=== PATIENT | male | born 1965 | race Caucasian/White ===

== ENCOUNTER 2016-07-30 12:52 | Inpatient (IN) ==
[2016-07-30 13:15] LABS: MANUAL DIFF NEEDED? NO
[2016-07-30 13:20] LABS: BASO% 0.5 % (0.0-0.8); EOS% 2.7 % (0.0-10.0); HEMATOCRIT 40.9 % (42.0-52.0); IMM GRAN# 0.04 X1000 (0.0-0.04); IMM GRAN% 0.4 % (0.0-0.5); LYMPH# 2.14 X1000 (1.2-3.4); LYMPH% 19.5 % (20.5-51.1); MCH 30.4 PG (27-31); MCHC 34.2 g/dL (33-37); MCV 88.9 FL (81-99); MONO# 0.67 X1000 (0.11-0.59); MONO% 6.1 % (1.7-9.3); MPV 10.1 FL (7.4-10.4); NEUT% 70.8 % (42.2-75.2); PLT 321 X1000 (130-400)
[2016-07-30 13:21] LABS: URINE CULTURE NEEDED? NO; URINE MICRO REVIEW NEEDED? NO; URINE SOURCE CLEAN CATCH
[2016-07-30 13:28] LABS: BILIRUBIN URINE NEGATIVE (NEGATIVE); BLOOD URINE SMALL (NEGATIVE); COLOR YELLOW; GLUCOSE URINE NEGATIVE (NEGATIVE); LEUKOCYTES URINE NEGATIVE (NEGATIVE); NITRITE URINE NEGATIVE (NEGATIVE); PROTEIN URINE TRACE mg/dL (NEGATIVE); SP GRAVITY URINE 1.022; TURBIDITY URINE CLEAR (CLEAR); UROBILINOGEN URINE NORMAL (NORMAL)
[2016-07-30 13:29] LABS: UR EPITHELIAL CELLS <10 /HPF (<10); URINE BACTERIA NEGATIVE /HPF; URINE RBC <10 /HPF (<10); URINE WBC <10 /HPF (<10)
[2016-07-30 13:34] LABS: AGAP 13; ALBUMIN 4.2 g/dL (3.5-5.0); ALKALINE PHOSPHATASE 68 U/L (32-122); BUN 15 mg/dL (8-22); CALCIUM 9.4 mg/dL (8.8-10.2); CHLORIDE 103 mmol/L (98-107); COSMO 286; GOT 11 U/L (10-34); GPT 13 U/L (10-44); POTASSIUM 4.6 mmol/L (3.5-5.1); SODIUM 142 mmol/L (136-145); TCO2 26 mmol/L (25-35); TOTAL BILIRUBIN 0.28 mg/dL (0.20-1.00); TOTAL PROTEIN 7.1 g/dL (6.3-8.3)
[2016-07-30 13:52] LABS: INR 1.31; PTT 39.5 Seconds (22.0-36.0)
--- NOTE | 2016-07-30 14:49 | PROVIDER DOCUMENTATION ---
HPI-Abdominal Pain/GI Problem - General Chief Complaint: Male Stated Complaint: SENT BY MD FOR FURTHER EVAL Time Seen by Provider: 07/30/16 13:20 Allergies/Adverse Reactions: Patient Allergies Allergy/AdvReac Type Severity Reaction Status Date / Time atorvastatin calcium * Allergy Severe ANAPHYLAXIS Verified 07/30/16 14:49 [From Lipitor] Home Medications: Home Medication List Medication Instructions Recorded Confirmed Last Taken Type Metformin [Glucophage] 1,000 mg PO BID 07/09/15 07/30/16 07/30/16 08:00 History Aspirin 81 mg DAILY 07/17/15 07/30/16 07/30/16 08:00 History ENALApril [Vasotec] 5 mg PO DAILY 08/16/15 07/30/16 07/30/16 08:00 History PRAVAstatin [Pravachol] 40 mg PO QHS 08/16/15 07/30/16 07/30/16 08:00 History Rivaroxaban [Xarelto] 40 mg PO HS 07/23/16 07/30/16 07/30/16 08:00 History Carvedilol [Coreg] 6.25 mg PO BID 07/29/16 07/30/16 07/30/16 08:00 History Fluoxetine HCl 20 mg PO DAILY 07/29/16 07/30/16 07/30/16 08:00 History - History of Present Illness-ABD Nature of Presenting Problems: Pt presents to ER for surgery for "filter" for his blood clot. Was seen in ER yesterday and 8 days ago for same complaints of weakness and "not feeling well" after starting blood thinner for DVT. Was seen in PCP office today and stopped blood thinner and pt understood was to come to ER for surgical placement of filter for DVT. States he has blood in his urine x6 days intermittently. Abdominal Pain Onset Location: reports: generalized abdomen Pain Radiation: reports: no radiation Quality of Pain: reports: aching Severity in ED: reports: mild Onset/Duration: reports: 1 week ago Timing: reports: intermittent Activities at Onset: reports: none Modifying Factors: improves with: nothing Associated Symptoms: reports: dizziness, fatigue, loss of appetite, malaise, nausea, weakness. denies: chest pain, constipation, diarrhea, headaches, joint pain, vomiting, trouble walking Last BM: this morning Dark Stools Present?: reports: none noticed Rectal Bleeding: reports: none # of Diarrhea Episodes: 0 Rectal Pain: reports: none # of Vomiting Episodes: 0 Bruising or Bleeding Gums?: No Similar Symptoms Previously?: Yes Recently seen or treated by another doctor?: Yes (seen in ER multiple times for same complaint) Review of Systems - Adult - REVIEW OF SYSTEMS - ADULT Constitutional: reports: jaydasally. denies: chills, fever Eyes: denies: blurred vision, double vision Cardiovascular: denies: chest pain Respiratory: denies: dyspnea on exertion, shortness of breath Gastrointestinal: reports: abdominal pain, nausea. denies: diarrhea, vomiting Genitourinary: reports: hematuria Musculoskeletal: reports: muscle weakness Neurological: denies: dizziness/vertigo, headache/migraines, numbness, paresthesia All Other Systems: Reviewed and Negative Past History - Adult - PAST MEDICAL HISTORY-ADULT Review of Records: reports: Old Records Reviewed, Nursing Assessment Review, Medications Reviewed, Social history reviewed & non-contributory. Cardiovascular: reports: CAD, PA Respiratory: reports: denies history Gastrointestinal: reports: denies history Endocrine/Immune: reports: Diabetes Other Conditions: reports: other (DVT) - PRIOR SURGERIES/PROCEDURES Surgical/Procedure History: reports: cardiac stent, orthopedic (extremity) (knee ) - PRIOR HOSPITALIZATIONS Prior Hospitalizations: reports: none - IMMUNIZATION STATUS Childhood Immunizations: See Nurse Assessment Flu Vaccine: See Nurse Assessment - FAMILY HISTORY Family History: diabetes, CAD over 55 yo, HTN - SOCIAL HISTORY Smoking: greater than 1 pack/day Provider spent 3-5 mins advising pt. on dangers of tobacco.: Discussed manners to quit use, and f/u contacts for add'l counseling. Living Situation: family Physical Exam-General - PHYSICAL EXAM-ADULT Initial Vital Signs Reviewed: Yes - CONSTITUTIONAL General Appearance: appears well, alert, no apparent distress - EYES Eyes: PERRL/EOMI, pink conjunctivae - HEAD, EARS, NOSE, MOUTH & THROAT HENMT: normocephalic/atraumatic, moist mucous membranes - RESPIRATORY Respiratory: chest non-tender, lungs clear, normal breath sounds - CARDIOVASCULAR Cardiovascular: regular rate, rhythm, no edema - GASTROINTESTINAL (ABDOMEN) Abdominal Exam: normal bowel sounds, soft, tenderness (generalized). negative: distended, guarding, rigid, rebound, hernia, mass - MUSCULOSKELETAL Back Exam: normal inspection, no CVA tenderness, no vertebral tenderness Extremity: normal gait, normal inspection - SKIN Integumentary: normal color, normal turgor, warm/dry - NEUROLOGIC Neurologic: grossly normal, no motor/sensory deficits - PSYCHIATRIC Psych/Mental Status: normal thought content, normal thought process, other (pt and family very confrontational and argumentative) Progress - PLAN OF CARE/RESULTS Progress/Plan/Lab Results: Vital Signs - 8 hr 07/30/16 12:54 Temperature 97.7 F Pulse Rate 72 Respiratory Rate 18 Blood Pressure 113/71 O2 Sat by Pulse Oximetry 99 Laboratory Results - last 24 hr 07/30/16 07/30/16 07/30/16 13:05 13:05 13:05 WBC 10.95 H RBC 4.60 L Hgb 14.0 Hct 40.9 L MCV 88.9 MCH 30.4 MCHC 34.2 RDW Std Deviation 13.9 Plt Count 321 MPV 10.1 Immature Gran % (Auto) 0.4 Neut % (Auto) 70.8 Lymph % (Auto) 19.5 L Jerome % (Auto) 6.1 Eos % (Auto) 2.7 Baso % (Auto) 0.5 Immature Gran # (Auto) 0.04 Neut # (Auto) 7.74 H Lymph # (Auto) 2.14 Jerome # (Auto) 0.67 H Eos # (Auto) 0.30 Baso # (Auto) 0.06 PT 14.0 H INR 1.31 PTT (Actin FS) 39.5 H Sodium 142 Potassium 4.6 Chloride 103 Carbon Dioxide 26 Anion Gap 13 BUN 15 Creatinine 0.9 Estimated GFR/1.73 m2 > 60 BUN/Creatinine Ratio 17 Glucose 135 H Calculated Osmolality 286 Calcium 9.4 Total Bilirubin 0.28 AST 11 ALT 13 Alkaline Phosphatase 68 Total Protein 7.1 Albumin 4.2 Globulin 2.9 Albumin/Globulin Ratio 1.4 Urine Source Urine Color Urine Turbidity Urine pH Ur Specific [place] Urine Protein Ur Glucose (Stick) Ur Ketones (Stick) Urine Blood Urine Nitrite Urine Bilirubin Urobilinogen Dipstick Urine Leukocytes Urine WBC (Auto) Urine RBC (Auto) U Epithel Cells (Auto) Urine Bacteria (Auto) 07/30/16 13:05 WBC RBC Hgb Hct MCV MCH MCHC RDW Std Deviation Plt Count MPV Immature Gran % (Auto) Neut % (Auto) Lymph % (Auto) Jerome % (Auto) Eos % (Auto) Baso % (Auto) Immature Gran # (Auto) Neut # (Auto) Lymph # (Auto) Jerome # (Auto) Eos # (Auto) Baso # (Auto) PT INR PTT (Actin FS) Sodium Potassium Chloride Carbon Dioxide Anion Gap BUN Creatinine Estimated GFR/1.73 m2 BUN/Creatinine Ratio Glucose Calculated Osmolality Calcium Total Bilirubin AST ALT Alkaline Phosphatase Total Protein Albumin Globulin Albumin/Globulin Ratio Urine Source CLEAN CATCH Urine Color YELLOW Urine Turbidity CLEAR Urine pH 5.0 Ur Specific [place] 1.022 Urine Protein TRACE A Ur Glucose (Stick) NEGATIVE Ur Ketones (Stick) NEGATIVE Urine Blood SMALL A Urine Nitrite NEGATIVE Urine Bilirubin NEGATIVE Urobilinogen Dipstick NORMAL Urine Leukocytes NEGATIVE Urine WBC (Auto) <10 Urine RBC (Auto) <10 U Epithel Cells (Auto) <10 Urine Bacteria (Auto) NEGATIVE Orders Category Date Time Status CBC WITH ELECTRONIC DIFF [HEME] Stat Lab 07/30/16 13:05 Completed COMPREHENSIVE METABOLIC PANEL [CHEM] Stat Lab 07/30/16 13:05 Completed PROTIME WITH INR [COAG] Stat Lab 07/30/16 13:05 Completed PTT [COAG] Stat Lab 07/30/16 13:05 Completed UA NIMS W/REFLEX CULT [URINALYSIS] Stat Lab 07/30/16 13:05 Completed Family members are very confrontational about improved labs from prior visits because "something is wrong with him" and "both of your hospitals have done nothing for him" for his weakness. Explained that I spoke to Dr. Estrella and he did not refer pt to ER for surgery but for management of abdominal pain if it warrants trip to ER. Explained that a CT of the abdomen had been ordered to evaluate abdominal pain. states "I'll call his office and get to the bottom of this" Result Diagrams: 07/30/16 13:05 07/30/16 13:05 - REASSESSMENT Reassessment #1 Time Reassessed: 17:36 (discussed with Catherine and will be admitted and evaulated for oral or surgical intervention) - CT/MRI 1 CT Study: Abdomen, Pelvis Impression: Normal CT Results: no acute abnormality - CONSULTS/PCP/HOSPITALIST Notification #1 *Consult/PCP/Hospitalist*: Rod Estrella Time Discussed: 14:57 (saw pt in clinic today, was hypotensive and had abdominal pain. Educated pt that filter for DVT could be option. Pt was not told to come to ER for surgery. Discussed progressive improvement in labs and urine from prior visits. ) Consult Disposition: F/U in office #2 Consult: Mickey Time Discussed: 17:14 (recommends further work up to evaluate need for filter as pt is not anemic and has no hematuria at this time so pt could potentially be on oral anticoagulant) #3 Consult: [place] Time Discussed: 17:35 Consult Disposition: Admit Departure - Departure Time of Disposition Decision: 16:53 DIAGNOSIS: Weakness generalized Disposition: ADMITTED INPATIENT 09 Certified Medical Emergency: Emergent Condition: Good Additional Freetext Instructions: ED Follow Up Instructions: You have been treated by a care provider in the Emergency Department. These instructions are being provided to you so you can have an understanding of how to care for yourself upon discharge. Upon discharge from the Emergency Department, you are responsible for making arrangements for follow-up care by a physician of your choice. Take all prescribed medications as directed. Return to the Emergency Department immediately for any new or worsening symptoms. You may call the Physician Referral phone number at [phone] to obtain a list of Physicians who are taking new patients. Referrals and Follow-Ups: Rod Estrella MD [Primary Care Provider] - Wilmar Arevalo MD [STAFF PHYSICIAN] - Discharge Education: Weakness Attestation - Physician/ KIAH Attestation Patient care was provided by Advanced Practice Provider:: Yes Advanced Practice Provider:: Venus Franklin Advanced Practice Provider documentation review:: The Mid-level provider documentation, treatment plan and medical decision making was reviewed by the physician who agrees with all treatment and medical decision making by the MLP.
--- NOTE | 2016-07-30 17:52 | Diag Imaging Result Document ---
PROCEDURE NAME: CT ABD/PELVIS W/ IV CONT ONLY - 07/30/2016 CT ABDOMEN AND PELVIS WITH INTRAVENOUS CONTRAST: FINDINGS: Dose reduction protocol. Compared to 07/19/2015. There are no pleural effusions on the current exam and there is no basilar atelectasis. Likely mild fatty infiltration of the liver. No focal hepatic abnormality. Normal spleen, pancreas, gallbladder, and adrenal glands. There is a tiny nonobstructing left renal stone. There are also tiny renal cysts. No hydronephrosis. No aortic aneurysm. Mild to moderate atherosclerosis. No bowel obstruction. No free air. Normal appendix. No abscess. The urinary bladder is moderately distended and appears normal. The prostate is not enlarged. IMPRESSION: No acute abdominal or pelvic abnormality. A preliminary report was given at 3:50 PM.
[2016-07-30] MEDS ORDERED: NORCO-5 PO PRN (18:54)
[2016-07-30] MEDS ORDERED: ZOFRAN IV PRN (18:56)
[2016-07-30] MEDS ORDERED: XOPENEX NEB INH PRN (18:58)
[2016-07-30] MEDS ORDERED: NS NEB INH SCH (19:00)
[2016-07-30] MEDS ORDERED: NICODERM PATCH TD SCH (20:00)
[2016-07-30] MEDS: LOVENOX SUBQ SCH (20:10)
[2016-07-30] MEDS: NICODERM PATCH TD SCH (20:45)
[2016-07-30] MEDS: COREG PO SCH (21:00)
[2016-07-30] MEDS: HUMULIN R SUBQ SCH (21:02)
[2016-07-30] MEDS: PRAVACHOL PO SCH (21:04)
--- NOTE | 2016-07-30 21:57 | HISTORY AND PHYSICAL ---
PRIMARY CARE PHYSICIAN: Rod Estrella M.D. [place] [facility] CONSULTANT: Silviano Demarco M.D. CHIEF COMPLAINT: Pain in my left leg and abdominal pain. HISTORY OF PRESENT ILLNESS: Mr. Bahena is a 51-year-old male with a history of coronary artery disease status post stent, diabetes mellitus type 2 and a recently diagnosed left lower extremity DVT who presented to the ER today with a chief complaint of increasing pain in his left lower extremity. The patient was diagnosed with a left lower extremity deep vein thrombosis on 07/13/2016. At that time the patient was started on Xarelto. Eliquis was mentioned as a possibility, however, it was noted to be too expensive for the patient. The patient states that after 1 week of taking Xarelto he started to have intermittent episodes of hematuria. He also reported feeling weaker than normal and complained of overall general malaise. The patient presented to his primary care physician's office today with a complaint of abdominal pain. He was then sent to the ER for further treatment and evaluation. The patient denies having any shortness of breath, headache, dizziness or recent syncopal episode. The patient denies having any change in his bowel habits. The patient states that he does not want to take the Xarelto anymore and is requesting to have an IVC filter placed. In the ER, a CT of the abdomen and pelvis was done that revealed no acute abnormality. PAST MEDICAL HISTORY: 1. Coronary artery disease status post stent. 2. History of V-fib arrest. 3. History of MA. 4. Diabetes mellitus type 2. 5. Hypertension. 6. Morbid obesity. 7. Recently diagnosed left lower extremity deep vein thrombosis. 8. Tobacco dependence. 9. Situational depression. PAST SURGICAL HISTORY: 1. Cardiac stents. 2. I and D of right leg compartment hematoma. FAMILY HISTORY: Unknown. The patient is adopted. SOCIAL HISTORY: The patient is and lives at home with his . The patient states that he smokes half a pack of cigarettes a day. He denies any alcohol or illicit drug use. ALLERGIES: Lipitor. HOME MEDICATIONS: 1. Fluoxetine 20 mg oral daily. 2. Xarelto 40 mg p.o. at bedtime. 3. Pravachol 40 mg p.o. at bedtime. 4. Metformin 1000 mg p.o. twice a day. 5. Aspirin 81 mg p.o. daily. 6. Vasotec 5 mg p.o. daily. 7. Coreg 6.25 mg p.o. twice daily. REVIEW OF SYSTEMS: A 12 point review of systems has been completed. Please refer to the history of present illness for pertinent positives and negatives. PHYSICAL EXAMINATION: VITAL SIGNS: Temperature 98 degrees, blood pressure 103/62, heart rate 70, respirations 18, O2 saturations 98% on room air GENERAL: This is a morbidly obese male, lying on the stretcher, in no acute distress. HEAD: Normocephalic, atraumatic. HEART: S1, S2 normal. Regular rate and rhythm. LUNGS: Clear to auscultation bilaterally. No wheezes, no rales, no rhonchi. ABDOMEN: Positive bowel sounds. Soft, nontender, nondistended. EXTREMITIES: +1 edema involving the left lower extremity. No cyanosis. Positive for calf tenderness in the left lower extremity. NEUROLOGIC: The patient is alert and oriented x3. No focal neurologic deficits noted. LABS: White blood cell count 10.9, hemoglobin 14, hematocrit 40, platelets 321,000 INR 1.3. UA negative. Sodium 142, potassium 4.6, chloride 103, CO2 26, BUN 15, creatinine 0.9, glucose 135. Calcium 9.5, total bilirubin 0.2, AST 11, ALT 13, alkaline phosphatase 68, total protein 7.1, albumin 4.2. RADIOLOGIC: CT of the abdomen and pelvis: No acute abnormality. ASSESSMENT AND PLAN: 1. Extensive left lower extremity deep vein thrombosis. We will start the patient on full dose Lovenox. We will consult Hematology and General Surgery for further recommendations. 2. Diabetes mellitus type 2. We will hold the patient's metformin since he just received IV contrast today. We will cover the patient with sliding scale insulin. 3. Coronary artery disease status post stent. Aware. We will restart the patient's current cardiac medications. 4. Morbid obesity. Aware. 5. Tobacco dependence. We will start the patient on a NicoDerm patch. The patient will also receive smoking cessation counseling. 6. Situational depression. Continue on Prozac. cc: Vijaya Escalante MD
[2016-07-30] MEDS ORDERED: PNEUMOVAX 23 IM ONE (22:07)
[2016-07-31] MEDS: HUMULIN R SUBQ SCH ×4 (06:11→21:02)
[2016-07-31] MEDS: PROTONIX IV SCH (06:12)
[2016-07-31] MEDS: SODIUM CHLORIDE 0.9% INJ SCH (06:12)
[2016-07-31 06:37] LABS: HEMOGLOBIN 13.1 g/dL (14.0-18.0); MCH 29.7 PG (27-31); MCHC 32.8 g/dL (33-37); MCV 90.7 FL (81-99); MPV 10.2 FL (7.4-10.4); RBC 4.41 XMIL (4.7-6.1)
[2016-07-31 06:49] LABS: AGAP 14; BUN 16 mg/dL (8-22); CALCIUM 8.8 mg/dL (8.8-10.2); CHLORIDE 104 mmol/L (98-107); COSMO 291; LIPASE 20 U/L (13-60); POTASSIUM 4.8 mmol/L (3.5-5.1); SODIUM 144 mmol/L (136-145); TCO2 26 mmol/L (25-35)
[2016-07-31] MEDS: PROZAC PO SCH (08:39)
[2016-07-31] MEDS: NICODERM PATCH TD SCH (08:39)
[2016-07-31] MEDS: VASOTEC PO SCH (08:39)
[2016-07-31] MEDS: COREG PO SCH ×2 (08:39→21:02)
[2016-07-31] MEDS: ASPIRIN PO SCH (08:39)
[2016-07-31] MEDS: LOVENOX SUBQ SCH ×2 (08:40→21:02)
--- NOTE | 2016-07-31 09:54 | CONSULTATION ---
DATE OF CONSULTATION: 07/31/2016 REQUESTING PHYSICIAN: Dr. Escalante. REASON FOR CONSULTATION: Left lower extremity DVT. HISTORY OF PRESENT ILLNESS: This is a 51-year-old male known to me, who had a traumatic hematoma in his right lower extremity treated surgically and drained several months ago, presenting now with pain in his left leg. He had been diagnosed approximately a month ago with a DVT in his left lower extremity that was from the popliteal, posterior tibial, and peroneal veins. It was not completely occluding at that time. He was initially started on Xarelto. There was some discussion about Eliquis. 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 He reported some degree of hematuria after 1 week of taking it. He also came to the emergency department complaining of abdominal pain. He had a CT scan that showed a nonobstructing left renal stone. He also had renal cysts. I was asked to weigh an opinion given his hematuria, his recent Xarelto, and the DVT. PAST MEDICAL HISTORY: 1. Coronary artery disease status post stent. 2. History of V-fib arrest. 3. History of IA. 4. Diabetes mellitus type 2. 5. Hypertension. 6. Morbid obesity. 7. History of DVT in the left lower extremity. 8. History of hematoma in the right lower extremity. 9. Tobacco dependence. 10. Depression. PAST SURGICAL HISTORY: 1. Previous cardiac stents. 2. Drainage of right leg compartment hematoma. FAMILY HISTORY: Reviewed but patient was adopted so unknown. SOCIAL HISTORY: Smokes half a pack a day. Denies alcohol or illicit drugs. ALLERGIES: Lipitor. HOME MEDICATIONS: Fluoxetine, Xarelto, Pravachol, metformin, aspirin, Vasotec, Coreg. REVIEW OF SYSTEMS: A full 10 point review of systems obtained. Negative except as specified in the HPI. PHYSICAL EXAMINATION: Vital Signs: The patient is currently afebrile. His vital signs have been stable. General: No acute distress. Alert, interactive, male, looks stated age. HEENT: Normocephalic, atraumatic. Pupils are round, react to light. Mucous membranes moist. Oropharynx benign. Neck: Supple. Trachea midline. Cardiovascular: Regular rate and rhythm. Lungs: Grossly clear. Abdomen: Soft, nontender, nondistended. Extremities : Some mild swelling in the left lower extremity but no signs of phlegmasia. 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 Vascular : All extremities perfuse. Skin: No signs of jaundice or phlegmasia. LABORATORY: Reviewed from yesterday. His current labs are pending this morning. IMAGING: CT scan reviewed. ASSESSMENT AND PLAN: This is a 51-year-old male with abdominal pain and a left lower extremity deep vein thrombosis. 1. Abdominal pain. At this time he has no acute abnormalities but he does have a tiny kidney stone on the left side which could be the cause of his small amount of hematuria. I would suspect that this hematuria does not represent bleeding while on anticoagulation and thus he has not likely developed a contraindication to anticoagulation. 2. Deep vein thrombosis in the left lower extremity. At this time, his previous one was in June. It was popliteal, posterior tibial, and peroneal. It was not completely occluded in the popliteal. At this time, I will repeat his ultrasound to evaluate. If it is not as extensive and only involving the peroneal and the posterior tibial, he may not need any kind of anticoagulation since his risk of thromboembolism is low from these anatomic sites. Again, his previous one was not completely occluding so the description of extensiveness is likely somewhat misleading. Patient does have hematology consulted and will follow up with their recommendations. But at this time, I am unsure if patient does have an exact indication for an inferior vena cava filter. I did discuss with the patient the risks, benefits, and alternatives for the IVC filter and I will follow up with the other teams recommendation. cc: MD BRENNA Jacob
[2016-07-31] MEDS ORDERED: MORPHINE IV PRN (12:15)
[2016-07-31] MEDS ORDERED: NS 1,000 ML IV SCH (13:15)
--- NOTE | 2016-07-31 13:44 | PROGRESS NOTE ---
DATE: 07/31/2016 SUBJECTIVE: The patient complaining of testicular pain. It seems like it moves, but it is his right testicle. In any case, patient clinically is still complaining of swelling; however, the DVT he had on the seventeenth appears to have completely resolved. OBJECTIVE: Vital Signs: As described. 119/81, heart rate of 71, respiratory rate of 16, temp 98.3 degrees. Cardiovascular: Regular rate and rhythm. Pulmonary: Bilateral breath sounds. Clear to auscultation. GI: Soft, nontender, nondistended. Bowel sounds are positive. LABORATORY DATA: White count is normal. Hemoglobin and hematocrit 13 and 40. Platelets 262. CMP looked okay. PROBLEM LIST: 1. History of deep vein thrombosis, left lower extremity. At this point he only has a superficial thrombus of the saphenous vein. His popliteal and peroneal deep vein thrombosis have all resolved. That is really kind of on no treatment because he only took Xarelto briefly before he developed hematuria and he stopped it. He never took Eliquis. He is getting Lovenox. I am going to rule him out for venous thromboembolism because he had spontaneous resolution of a clot just to make sure he does not have a pulmonary embolus, although he is not particularly symptomatic. No chest pain. He does have chronic shortness of breath. and patient are obsessing over the fact that he had a deep vein thrombosis on Brilinta. I explained that Brilinta would not per se prevent a deep vein thrombosis. There is some benefit to anti-platelet therapy, but that was not definitive therapy for a deep vein deep vein thrombosis. I think there is some confusion over the term blood thinner and they feel that he was on a blood thinner. We described that there are 2 types of hemostasis; one does not necessarily treat the other. Hematology/oncology is consulted. Again, if he has no evidence of venous thromboembolism and his hypercoagulable workup is negative, I would say he does not need any anticoagulation. At this point, I do not think he needs an inferior vena cava filter because there is no deep vein thrombosis. He does have a superficial thrombus, but that has been there, and he seems high risk for complications, hematuria and such for bleeding. 2. Scrotal pain. I cannot palpate anything too concerning on exam. We will get a scrotal ultrasound. Genitourinary has already being consulted. His CT scan shows left ureteral stone, but no ureteral obstruction. Again family thinks he has gross hematuria and his urine looks clear (I mean the urinalysis showed less than 10 red blood cells). It is difficult to explain things to patient and family when they are disagreeing with obvious signs and symptoms, but in any case we will continue to monitor and follow closely. Again, I think if we can rule out venous thromboembolism, pulmonary embolism, I am not sure if he needs longstanding anticoagulation, but we will defer to a specialist opinion after they have reviewed the case. 3. Dyslipidemia appears to be stable. 4. Hypertension appears to be stable. DISPOSITION: Hopefully discharge soon once the VTE workup is finished. cc: Tyler Adams MD
--- NOTE | 2016-07-31 14:46 | Diag Imaging Result Document ---
PROCEDURE NAME: US SCROTUM - 07/31/2016 SCROTAL ULTRASOUND: COMPARISON: None available. FINDINGS: Both testicles are grossly normal in echotexture with no discrete parenchymal cysts or masses. Both testicles exhibit normal Doppler flow. The right testicle measures up to 4.5 cm and the left testicle measures up to 4.6 cm in the greatest dimensions. The left and right epididymis are grossly unremarkable with the right measuring up to 1.5 cm and the left measuring up to 1.2 cm in the greatest dimensions. There are bilateral fairly small hydroceles with a hydrocele on the left measuring. 3 x 3.1 x 1 cm and the hydrocele on the right measuring 3.7 x 2.8 x 1.3 cm. IMPRESSION: Bilateral small hydroceles. Essentially unremarkable scrotal ultrasound, otherwise.
--- NOTE | 2016-07-31 15:53 | Diag Imaging Result Document ---
PROCEDURE NAME: ANGIOGRAM/PULMONARY ARTERIES - 07/31/2016 CT ANGIOGRAM OF PULMONARY ARTERIES WITH CONTRAST: Exam performed with intravenous contrast. A dose-reduction protocol was used. COMPARISON: No comparison exam. FINDINGS: There are no filling defects identified in the pulmonary arteries. There is no indication of aortic dissection. The lungs appear essentially clear. There is no consolidation, pleural effusion , or pneumothorax identified. There are no substantially enlarged mediastinal lymph nodes identified. Heart size is borderline prominent. IMPRESSION: 1. No evidence of pulmonary embolism. 2. Borderline cardiomegaly. 3. No evidence of pneumonia. 4. No pneumothorax. [facility]
--- NOTE | 2016-07-31 18:36 | ECHO REPORT ---
ORDER DATE: 07/30/2016 INTERPRETING PHYSICIAN: Dr. Baker REQUESTING PHYSICIAN: CLINICAL INDICATIONS: A 51-year-old male with coronary heart disease, stent, diabetes, hypertension. M-MODE MEASUREMENTS: Right ventricle: 3.4 cm. Left ventricle end diastole: 6.7 cm. Left ventricle end systole: 5.0 cm. Posterior wall: 0.9 cm. Interventricular septum: 0.9 cm. Left atrium: 4.9 cm. Aortic root: 3.3 cm. SUMMARY OF 2-DIMENSIONAL IMAGING: The left ventricular function is normal. Ejection fraction estimated 63%. The chamber is moderately to significantly dilated. The right ventricle appears to be mildly enlarged. The inferior vena cava is not dilated. The tricuspid valve shows a mild degree of right. The pulmonary pressure is estimated at 26 mmHg. The pulmonic valve looks normal. Color flow mapping unremarkable. The mitral valve looks normal. Color flow mapping indicates a mild degree of regurgitation. Pulse wave Doppler of mitral inflow is normal. Tissue Doppler of septal and lateral mitral annulus averages 6.5 cm per second. There is no diastolic dysfunction. The aortic valve looks normal. Color flow mapping unremarkable. There is no pericardial effusion, masses or thrombus. Clinical correlation recommended. cc: MD Vijaya Barnett MD
[2016-07-31] MEDS ORDERED: COUMADIN PO ONE (21:00)
[2016-07-31] MEDS: PRAVACHOL PO SCH (21:02)
--- NOTE | 2016-07-31 21:52 | CONSULTATION ---
DATE OF CONSULTATION: 07/31/2016 REASON FOR CONSULTATION: Patient has spontaneous DVT, left lower extremity. HISTORY OF PRESENT ILLNESS: Patient with a recent spontaneous DVT, left lower extremity popliteal peroneal DVT approximately 2 weeks ago, started on Xarelto. Came in to the emergency room with some mild hematuria and abdominal pain. Reports that he has not felt well on xarelto. CT abdomen and pelvis showed no acute abdominal or pelvic abnormality, did show a tiny nonobstructing left renal stone. Hypercoagulable workup is currently pending. We are awaiting followup repeat Doppler's from today. Denies any black or bright red stool, new lumps or bumps or bone pain. Review of systems negative unless indicated in HPI. PAST MEDICAL HISTORY: 1. History of [place]. 2. Diabetes type 2. 3. Hypertension. 4. Morbid obesity. 5. Coronary artery disease. 6. Left lower extremity DVT recently diagnosed. 7. Tobacco. FAMILY AND SOCIAL HISTORY: The patient smokes a half pack of cigarettes daily. Denies alcohol or illicit drug use. ALLERGIES: Lipitor. HOME MEDICATIONS: 1. Prozac 20 mg daily. 2. Xarelto 20 mg. 3. Pravachol. 4. Metformin. 5. Aspirin. 6. Vasotec. 7. Coreg. PHYSICAL EXAMINATION: Vital signs stable. General: This is a morbidly obese man in no acute distress. HEENT: Normocephalic, atraumatic. Pupils equal, round, symmetric. Cardiovascular: S1, S2 audible on auscultation with no heaves, lifts, thrills. Pulmonary: Breath sounds clear to auscultation. Normal respiratory effort. Abdomen: Soft, nontender, nondistended. Extremities: 1+ edema of the left lower extremity. Neurologic: Alert and oriented x3. Psychiatric: Appropriate to the situation. LABORATORY DATA AND DIAGNOSTIC DATA: CT as above. ASSESSMENT AND PLAN: 1. Left lower extremity deep venous thrombosis. Hypercoagulable workup is pending. Follow up on Doppler's from today. The patient is currently on Lovenox for now. Plan further management based on results. 2. Hematuria. The patient had some small amount of blood in his urine. Xarelto was changed to Lovenox. 3. Abdominal pain. CT abdomen and pelvis was essentially benign. 4. Will continue to follow. Dictated by LAQUITA Cortes for Delroy Garcia MD cc: LAQUITA Cortes MD [facility]
[2016-08-01] MEDS: SODIUM CHLORIDE 0.9% INJ SCH (06:15)
[2016-08-01] MEDS: PROTONIX IV SCH (06:15)
[2016-08-01] MEDS: HUMULIN R SUBQ SCH ×4 (06:16→20:36)
--- NOTE | 2016-08-01 06:44 | PROGRESS NOTE ---
DATE: 08/01/2016 SUBJECTIVE: The patient is doing well, no major issues. I reviewed the ultrasound report with the voice intercept technician. The DVT in his left lower extremity is not as convincing as being present at this time. I discussed his case with both Dr. Escalante and Dr. Garcia. OBJECTIVE: Vital Signs: The patient is currently afebrile. His vital signs have been stable. General: No acute distress. Resting comfortably in bed. HEENT: Normocephalic, atraumatic. Pupils equal, round, reactive to light. Mucous membranes moist. Oropharynx benign. Neck: Supple. Trachea midline. Cardiovascular: Regular rate and rhythm. Lungs: Grossly clear. Abdomen: Soft, nontender, nondistended. Extremities: No significant changes noted to bilateral lower extremities. No signs of phlegmasia to the left lower extremity at this time. LABORATORY DATA: None currently. Reviewed from yesterday. ASSESSMENT AND PLAN: A 51-year-old male with a possible left lower extremity deep vein thrombosis. Possible left lower extremity deep vein thrombosis: At this time, given the fact that it is not as prominent on the repeat ultrasound or even possibly there on the repeat ultrasound, my recommendation would be avoid IVC filter. Given the fact that he had a previous deep vein thrombosis, he may still require anticoagulation. I do not suspect that his hematuria is a contraindication to anticoagulation. I will be available if needed. I will follow peripherally. cc: Fabrizio Sanders MD
[2016-08-01 07:43] LABS: HEMATOCRIT 39.1 % (42.0-52.0); MCHC 33.2 g/dL (33-37); MCV 90.3 FL (81-99); MPV 10.6 FL (7.4-10.4); RBC 4.33 XMIL (4.7-6.1)
[2016-08-01 07:48] LABS: AGAP 9; BUN 14 mg/dL (8-22); CALCIUM 8.6 mg/dL (8.8-10.2); CHLORIDE 105 mmol/L (98-107); COSMO 286; POTASSIUM 4.7 mmol/L (3.5-5.1); SODIUM 141 mmol/L (136-145); TCO2 27 mmol/L (25-35)
[2016-08-01] MEDS: LOVENOX SUBQ SCH ×2 (08:59→20:35)
[2016-08-01] MEDS: PROZAC PO SCH (08:59)
[2016-08-01] MEDS: VASOTEC PO SCH (08:59)
[2016-08-01] MEDS: ASPIRIN PO SCH (08:59)
[2016-08-01] MEDS: COREG PO SCH ×2 (08:59→20:35)
[2016-08-01] MEDS: NICODERM PATCH TD SCH (09:00)
[2016-08-01] MEDS ORDERED: FIORICET PO ONE (15:14)
--- NOTE | 2016-08-01 15:52 | PROGRESS NOTE ---
DATE: 08/01/2016 SUBJECTIVE: Patient has no focal complaints except headache. OBJECTIVE: Vital Signs: All vital signs are stable. Blood pressure 91/59, heart rate 61, respiratory rate 13, temperature 98 degrees, on room air. Cardiovascular: Regular rate and rhythm. Pulmonary: Bilateral breath sounds. Clear to auscultation. GI: Soft, nontender, nondistended. Bowel sounds are positive. Extremities: No clubbing or cyanosis. Lymphatics: No peripheral edema. Neurological: Nonfocal. LABORATORY DATA: Chemistries look okay. Hemoglobin and hematocrit are 13 and 39. Normal white count. PROBLEM LIST: 1. Deep vein thrombosis. Currently he has no DVT; at least a Doppler was negative for DVT. He does have a saphenous thrombophlebitis. Awaiting final recommendations per hematology. I think he said he can resume Xarelto. Patient claims he has hematuria but his urine tests are negative, so I do not know; he is a strange situation. In any case, he seems to be doing okay. He does not have a DVT or PE. I guess we will end up discharging him on Xarelto. For some reason his outpatient dose was 40 mg which I was think was way too high of a dose. I do not know why he was discharged on that dose. But in any case, I think he can just go back on 20 mg a day and see how he does. Again, he does not have a DVT or a PE at this point. 2. Transient hypotension. I think his Coreg dose may be a little high. I am going to back down on that dose to 3.125 and follow. 3. Reported hematuria. Apparently he is due for a cystoscopy on Saturday. As it is going to be difficult to take him off Xarelto and then put him back on his Xarelto, we are just going to monitor him through Saturday due to cystoscopy and then he can go home on Xarelto after that. Again, I am waiting for final recommendations per no hematology/oncology. cc: Tyler Adams MD
--- NOTE | 2016-08-01 18:32 | Extremity Venous Study ---
PROCEDURE NAME: Venous U/S Left Leg - 07/31/2016 This is the left lower extremity venous duplex, and color flow imaging study using the [employer] vivid E 9 ultrasound system with a 9 L-D transducer. REFERRING PHYSICIAN: Dr. Sanders. 51-year-old male. GLASS MOLD REPAIRER: Vaishnavi Butler RVT. INDICATIONS: Thrombosis acute proximal lower extremity, ICD 10 182.4Y9. The patient had a left leg DVT in June 2016. FINDINGS: The left common femoral vein and its branches, deep and superficial femoral veins were satisfactorily imaged. They had flow through them and were compressible. Left popliteal vein and the deep veins below the left knee were all compressible and had flow through them. There appears to be a chronic clot in the small saphenous vein on the left. The great saphenous vein was compressible throughout its length. INTERPRETATION: No evidence of acute deep or superficial venous thrombosis of the left lower extremity. There is evidence of chronic thrombophlebitis involving the left small saphenous vein. cc: MD Fabrizio Bobo MD
[2016-08-01] MEDS ORDERED: FIORICET PO PRN (19:00)
[2016-08-01] MEDS: PRAVACHOL PO SCH (20:35)
[2016-08-01 21:15] LABS: URINE MICRO REVIEW NEEDED? NO; URINE SOURCE VOIDED
[2016-08-01 21:19] LABS: BILIRUBIN URINE NEGATIVE (NEGATIVE); BLOOD URINE NEGATIVE (NEGATIVE); COLOR YELLOW; GLUCOSE URINE 70 mg/dL (NEGATIVE); LEUKOCYTES URINE NEGATIVE (NEGATIVE); NITRITE URINE NEGATIVE (NEGATIVE); PROTEIN URINE NEGATIVE (NEGATIVE); SP GRAVITY URINE 1.019; TURBIDITY URINE CLEAR (CLEAR); UROBILINOGEN URINE NORMAL (NORMAL)
[2016-08-01 21:21] LABS: UR EPITHELIAL CELLS <10 /HPF (<10); URINE BACTERIA NEGATIVE /HPF; URINE RBC <10 /HPF (<10); URINE WBC <10 /HPF (<10)
--- NOTE | 2016-08-01 22:12 | CONSULTATION ---
DATE OF CONSULTATION: 07/31/2016 CONSULTING PHYSICIAN: Vijaya Escalante M.D. REASON FOR CONSULTATION: Hematuria and scrotal pain. HISTORY OF PRESENT ILLNESS: A 51-year-old male without previous significant urologic history who is admitted with abdominal pain as well as leg pain. He was recently diagnosed with left lower extremity DVT. He reports being placed on a blood thinner and noticed some intermittent gross hematuria. He denies significant flank pain but does report abdominal discomfort which is vague, nonradiating, dull without associated nausea or vomiting. He also reports intermittent scrotal pain with the right side more affected than the left. PAST MEDICAL HISTORY: 1. Coronary artery disease status post myocardial infarction. 2. Diabetes mellitus. 3. Hypertension. 4. DVT. 5. Obesity. 6. Depression. PAST SURGICAL HISTORY: 1. Percutaneous coronary intervention. 2. Right lower extremity I and D. SOCIAL HISTORY: He has smoked half a pack of cigarettes for 30 years. He denies alcohol or illicit drug use. ALLERGIES: Lipitor. HOME MEDICATIONS: Fluoxetine, Pravachol, metformin, Vasotec, Coreg, aspirin 81 mg, Xarelto. FAMILY HISTORY: Not known as patient was adopted. REVIEW OF SYSTEMS: A reviewed of 12 systems was negative except for the HPI. PHYSICAL EXAMINATION: Vital Signs: T 97.6, P 57, BP 98/53. General: Pleasant male in no acute distress. HEENT: Normocephalic, atraumatic. Cardiovascular: Regular rhythm. Pulmonary: Bilateral breath sounds. Abdomen: Protuberant. Nontender to palpation. No masses noted. Genitourinary: Normal phallus. Normal meatus. Testes descended bilaterally. Mildly tender to palpation but no testicular mass appreciated. He does have some scrotal fullness consistent with hydrocele. Perineum: Intact. Digital rectal examination: Deferred. Dermatologic: No obvious skin rashes. Lymphatic: No groin lymphadenopathy. Psychiatric: Appropriate mood and affect. LABORATORY DATA: Creatinine of 0.8, white cell count of 9000, hematocrit 39. PERTINENT IMAGES: 1. CT of abdomen and pelvis with IV contrast on 07/30/2016 revealing a small renal cyst and a 1-2 mm left renal stone without obstruction or hydronephrosis. 2. Scrotal ultrasound on 07/31/2016 revealing bilateral small hydroceles with normal blood flow to both testes. ASSESSMENT AND PLAN: A 51-year-old male with intermittent gross hematuria as well as scrotal pain. We went over patient's CT scan findings as well as the ultrasound findings. We discussed his hydroceles were too small to warrant intervention. We discussed differential diagnosis of gross hematuria and workup with office cystoscopy. He has got quite a bit going on and I explained to the patient that once his primary issues are addressed workup with cystoscopy is warranted. PLAN: 1. No emergent urologic intervention needed at this time. 2. I have recommended conservative observation of hydroceles. 3. We will plan to schedule patient for outpatient cystoscopy after discharge. Thank you for the consultation. cc: Edu Rodas MD
[2016-08-02] MEDS: PROTONIX IV SCH (06:15)
[2016-08-02] MEDS: SODIUM CHLORIDE 0.9% INJ SCH (06:15)
[2016-08-02] MEDS: HUMULIN R SUBQ SCH ×3 (06:40→17:57)
[2016-08-02 07:19] LABS: HEMATOCRIT 38.4 % (42.0-52.0); HEMOGLOBIN 12.8 g/dL (14.0-18.0); MCH 29.9 PG (27-31); MCHC 33.3 g/dL (33-37); MCV 89.7 FL (81-99); MPV 10.4 FL (7.4-10.4); RBC 4.28 XMIL (4.7-6.1)
[2016-08-02 07:35] LABS: AGAP 12; BUN 18 mg/dL (8-22); CALCIUM 8.7 mg/dL (8.8-10.2); CHLORIDE 104 mmol/L (98-107); COSMO 292; POTASSIUM 4.7 mmol/L (3.5-5.1); SODIUM 142 mmol/L (136-145); TCO2 26 mmol/L (25-35)
[2016-08-02] MEDS: ASPIRIN PO SCH (09:10)
[2016-08-02] MEDS: NICODERM PATCH TD SCH (09:10)
[2016-08-02] MEDS: VASOTEC PO SCH (09:10)
[2016-08-02] MEDS: PROZAC PO SCH (09:11)
[2016-08-02] MEDS: LOVENOX SUBQ SCH (09:11)
[2016-08-02] MEDS: COREG PO SCH (09:11)
--- NOTE | 2016-08-02 10:43 | PROGRESS NOTE ---
DATE: 08/02/2016 PRIMARY CARE PHYSICIAN: Rod Estrella MD LEAD SUSTAINABILITY SPECIALIST: Silviano Demarco MD CHIEF COMPLAINT: He came in with pain in the left leg and abdominal pain. HISTORY OF PRESENT ILLNESS: Mr. Bahena is a 51-year-old male with a history of coronary artery disease, status post stent, diabetes mellitus type 2, recently diagnosed with left lower extremity DVT, who presented to the emergency room with a chief complaint of increased pain in the left lower extremity. The patient was diagnosed with a left lower extremity deep venous thrombosis on 07/13/2009. At that time, the patient was started on Xarelto. Eliquis was mentioned as a possibility; however, it was noted to be too expensive for the patient. The patient states that after 1 week of taking Xarelto he started having intermittent episodes of hematuria. He also reported feeling weaker than normal. He complained of overall general malaise. The patient presented to the emergency room here. He went to his primary care physician's office and complained of abdominal pain. He was then sent to the ER for treatment and evaluation. He denied any shortness of breath. No change in bowel habits. He states that he does not take the Xarelto anymore and is requesting to have IVC filter placed. In the ER, the CT of the abdomen and pelvis was done and revealed no acute abnormality. PAST MEDICAL AND SURGICAL HISTORY: 1. Once again, coronary artery disease. 2. History of ventricular fibrillation and arrest in the past. 3. History of SD. 4. Diabetes mellitus type 2. 5. Hypertension. 6. Morbid obesity. 7. Diagnosis of lower extremity deep venous thrombosis. 8. Tobacco dependence. 9. Situational depression. 10. He has had some cardiac stents. 11. An I and D of right leg compartment hematoma in the past. HOME MEDICATIONS: Reviewed his home medications. REVIEW OF SYSTEMS: This morning he feels good. He is breathing good. He had some discomfort in the pelvic area. PHYSICAL EXAMINATION: Vital Signs: Temperature 98 degrees, pulse 58, respirations 17, blood pressure 125/79. HEENT and Neck: Pupils are equal and round. CVP less than 6 cm. Lungs: Clear in all lung ortiz. Cardiovascular: Regular rhythm and rate without murmur or S3. UROLOGIC EVALUATION/CONSULTATION: Urine Output: It looks like it has been over [address] Rodas was consulted on the . He did not see any reason for an emergent urologic intervention at that time and conservative treatment of his hydrocele. He has had a history of gross hematuria, as well as scrotal pain. CT findings and ultrasound findings were reviewed by Dr. Rodas. The hydroceles and too small to warrant intervention, and he is considering doing a cystoscopy I think tomorrow. ASSESSMENT AND PLAN: 1. Deep venous thrombosis. Currently, he has no deep vein thrombosis, at least Doppler was negative for deep vein thrombosis. He does have saphenous thrombophlebitis. Awaiting final recommendations for hematology. He can resume Xarelto. I think we need to. He claims he had some hematuria, but his urine is negative. We discussed with Urology. He does not have a deep vein thrombosis or pulmonary embolism, and we may end up discharging him on Xarelto. The patient was on 40 mg. I think we could let him go home on 20 mg. 2. Transient hypotension. Coreg was backed down a little bit to 3.125 mg. I think, b.i.d. 3. Reported hematuria. He is apparently due for a cystoscopy on Saturday. We are going to monitor him through, I guess, until cystoscopy. He may go home either with or without Xarelto. 4. I reviewed his orders. I do not see anything to change at this point. cc: Jeff Muller MD
[2016-08-02 16:04] VITALS: BP 115/75
--- NOTE | 2016-08-03 14:21 | DISCHARGE SUMMARY ---
ADMISSION DATE: 07/30/2016 DISCHARGE DATE: 08/02/2016 CHIEF COMPLAINT: Presented with pain in the left leg and abdominal pain. COO: Dr. Silviano Demarco. PRIMARY CARE PROVIDER: Dr. Rod Estrella. HISTORY OF PRESENT ILLNESS: A 51-year-old with history of coronary artery disease status post stent, diabetes mellitus type 2, and recently diagnosed left lower extremity DVT, who presented to the emergency room on 07/30/2016 with chief complaint of increasing pain in the left lower extremity. The patient was diagnosed with left lower extremity venous thrombosis on 07/13/2009. At that time, patient was started on Xarelto. Eliquis was mentioned as a possibility; however, noted to be too expensive by the patient and I think he was on Brilinta before that. The patient states that 1 week after taking Xarelto he started having intermittent episodes of hematuria. He also reported feeling weaker than normal and complained of general malaise. The patient presented to the primary care physician's office complaining of abdominal pain. He was then sent to the ER for further treatment and evaluation. The patient denied having any shortness of breath, headache, dizziness, or recent syncopal episode. The patient denies having any change in his bowel habits. The patient states he does not want to take the Xarelto anymore and was requesting to have an IVC filter placed in the ER. A CT of the abdomen pelvis was done and revealed no acute abnormality. PAST MEDICAL HISTORY: 1. Coronary artery disease, status post stents. 2. History of ventricular fibrillation and arrest. 3. History of myocardial infarction. 4. Diabetes mellitus, type 2. 5. Hypertension. 6. In the past, morbid obesity. 7. Lower extremity deep venous thrombosis in the left leg. 8. Tobacco dependence. 9. Situational depression. PAST SURGICAL HISTORY: Status post cardiac stents, I and D of right leg compartment hematoma in the past. STAY IN THE HOSPITAL: He was admitted to the hospital. He got an echocardiogram and Doppler which showed left ventricular ejection fraction 63%, chamber moderately to significantly dilated. Right ventricle appeared to be mildly enlarged. Really no other sign of valvular dysfunction. The mitral valve was normal. Mild degree of regurgitation. Extremity venous study: No evidence of acute deep or superficial venous thrombosis of left lower extremity. There is evidence of chronic thrombophlebitis involving the left small saphenous vein. Pulmonary arteriogram on 07/31/2016: No evidence of pulmonary embolism. Borderline cardiomegaly. No evidence of pneumonia. No pneumothorax. He had a scrotal ultrasound done on 07/31/2016: Bilateral small hydroceles, essentially unremarkable scrotal ultrasound otherwise. LAQUITA Camacho saw the patient. Lower extremity deep venous thrombosis. Hypercoagulable workup was pending. Followup on Dopplers were negative. Patient on Lovenox 1 mg/kg. Hematuria. We did not see any blood in the urine. Xarelto was stopped and now he is on Lovenox. Workup urologically was unremarkable. Dr. Sanders saw him on 08/01/2016 and repeated the ultrasound. There was no reason to put an IVC filter. Dr. Rodas saw him on 08/01/2016. He felt that there was no emergent urologic intervention needed at this time. Recommended conservative observation of hydrocele, plan to schedule patient for outpatient cystoscopy after discharge, if needed. I told the patient he was welcome go home. He did have some scrotal discomfort. We saw no gross hematuria. Our recommendation is to stay off the Xarelto for now and let him go back on his medications, Brilinta. Workup is still pending as far as hypercoagulable workup. DISCHARGE MEDICATIONS: Go back on aspirin 81 mg a day, Coreg 6.25 mg b.i.d., Vasotec 5 mg a day, fluoxetine 20 mg daily, Glucophage 1000 mg b.i.d., and Pravachol 40 mg at bedtime. Have him restart his Brilinta, which I think he felt he was supposed to be on. NOTE: His lupus inhibitor, protein C, protein S, and antithrombin III were unremarkable. cc: Jeff Muller MD
== END 2016-08-02 18:59 | disposition home or self-care (01) ==
LOC: ED 12:52 → SUATTDRO 19:28 → EDIPHOLD 19:28 → 3N 21:18
PROVIDERS: ATTEND Emergency Medicine

== ENCOUNTER 2017-01-14 17:58 | Inpatient (IN) ==
[2017-01-14] MEDS ORDERED: ASPIRIN PO STA (18:22)
[2017-01-14 19:03] LABS: MANUAL DIFF NEEDED? NO
[2017-01-14 19:04] LABS: BASO% 0.4 % (0.0-0.8); EOS# 0.32 X1000 (0.0-0.7); EOS% 2.8 % (0.0-10.0); HEMATOCRIT 43.9 % (42.0-52.0); IMM GRAN# 0.03 X1000 (0.0-0.04); IMM GRAN% 0.3 % (0.0-0.5); LYMPH# 2.34 X1000 (1.2-3.4); LYMPH% 20.5 % (20.5-51.1); MCH 30.4 PG (27-31); MCHC 34.2 g/dL (33-37); MONO# 0.74 X1000 (0.11-0.59); MONO% 6.5 % (1.7-9.3); MPV 10.4 FL (7.4-10.4); NEUT% 69.5 % (42.2-75.2); PLT 325 X1000 (130-400); RBC 4.93 XMIL (4.7-6.1)
[2017-01-14 19:13] LABS: INR 1.01; PROTIME 10.6 Seconds (9.2-11.7); PTT 28.8 Seconds (22.0-36.0)
[2017-01-14 19:19] LABS: AGAP 15; ALBUMIN 4.1 g/dL (3.5-5.0); ALKALINE PHOSPHATASE 55 U/L (32-122); BUN 14 mg/dL (8-22); CALCIUM 9.5 mg/dL (8.8-10.2); CHLORIDE 101 mmol/L (98-107); CK PROFILE 104 U/L (24-204); COSMO 280; GOT 11 U/L (10-34); GPT 12 U/L (10-44); MAGNESIUM 1.9 mg/dL (1.5-2.7); SODIUM 138 mmol/L (136-145); TCO2 22 mmol/L (25-35); TOTAL BILIRUBIN 0.38 mg/dL (0.20-1.00); TOTAL PROTEIN 7.2 g/dL (6.3-8.3)
[2017-01-14] MEDS ORDERED: NICODERM PATCH TD ONE (21:08)
[2017-01-14] MEDS ORDERED: LOVENOX SUBQ SCH (23:38)
[2017-01-14] MEDS ORDERED: TYLENOL PO PRN (23:38)
[2017-01-14] MEDS ORDERED: ZOFRAN IV PRN (23:38)
[2017-01-14] MEDS ORDERED: NITROGLYCERIN SL PRN (23:38)
[2017-01-15] MEDS: HUMALOG SUBQ SCH ×2 (06:00→11:16)
[2017-01-15 06:49] LABS: MANUAL DIFF NEEDED? NO
[2017-01-15 06:56] LABS: BASO% 0.4 % (0.0-0.8); EOS# 0.27 X1000 (0.0-0.7); HEMATOCRIT 40.8 % (42.0-52.0); HEMOGLOBIN 13.6 g/dL (14.0-18.0); IMM GRAN# 0.04 X1000 (0.0-0.04); IMM GRAN% 0.4 % (0.0-0.5); LYMPH# 2.02 X1000 (1.2-3.4); LYMPH% 22.2 % (20.5-51.1); MCHC 33.3 g/dL (33-37); MCV 90.1 FL (81-99); MONO# 0.73 X1000 (0.11-0.59); MPV 10.5 FL (7.4-10.4); PLT 280 X1000 (130-400); RBC 4.53 XMIL (4.7-6.1)
[2017-01-15 08:52] LABS: AGAP 14; BUN 16 mg/dL (8-22); CALCIUM 8.9 mg/dL (8.8-10.2); CHLORIDE 104 mmol/L (98-107); COSMO 287; POTASSIUM 4.6 mmol/L (3.5-5.1); SODIUM 142 mmol/L (136-145); TCO2 24 mmol/L (25-35)
[2017-01-15] MEDS ORDERED: PROZAC PO SCH (09:00)
[2017-01-15] MEDS ORDERED: BRILINTA PO SCH (09:00)
[2017-01-15] MEDS ORDERED: ASPIRIN PO SCH (09:00)
[2017-01-15] MEDS ORDERED: LYRICA PO SCH (09:00)
[2017-01-15] MEDS ORDERED: COREG PO SCH (09:00)
[2017-01-15] MEDS ORDERED: VASOTEC PO SCH (09:00)
[2017-01-15] MEDS ORDERED: HEPARIN 1000 UNITS/NS 2,000 UNIT/1,000 ML IV.SOLN ONE (10:31)
[2017-01-15] MEDS ORDERED: VERSED ONE (10:53)
[2017-01-15] MEDS ORDERED: CLAVE PUMP SET NO FILTER 12260 ONE (10:54)
[2017-01-15] MEDS ORDERED: CLAVE TWINSITE 32 IN 11959 ONE (10:54)
[2017-01-15] MEDS ORDERED: NS 1,000 ML ONE (10:54)
[2017-01-15] MEDS ORDERED: MORPHINE ONE (10:54)
[2017-01-15] MEDS ORDERED: NS 1,000 ML IV ONE (11:00)
[2017-01-15] MEDS ORDERED: MAALOX PLUS LIQUID PO PRN (14:19)
[2017-01-15] MEDS ORDERED: CARDIZEM 100 MG/NS 100 MG/100 ML IVPB ONE (15:38)
[2017-01-15 18:40] VITALS: BP 111/62
[2017-01-15] MEDS ORDERED: PRAVACHOL PO SCH (21:00)
== END 2017-01-15 17:01 | disposition home or self-care (01) ==
LOC: ED 17:58 → SUATTDRO 23:10 → 3N 23:10 → 3S 01-15 11:49
PROVIDERS: ATTEND Internal Medicine